=== PATIENT | female | born 1990 | race African-American/Black ===

== ENCOUNTER 2019-06-30 17:55 | Emergency (ER) | payer MEDICAID, OTHER ==
[~2019-06-30] VITALS: Ht 165.1 cm; Wt 73.0 kg
[2019-06-30] MEDS ORDERED: IPRATROPIUM BROMIDE (0.02%) 0.5MG/2.5ML NEB HHN STA (18:09)
[2019-06-30] MEDS ORDERED: METHYLPREDNISOLONE SOD SUCC 125 MG/2 ML VIAL IV STA (18:09)
[2019-06-30] MEDS ORDERED: ALBUTEROL (0.083%) 2.5MG/3ML NEB HHN STA ×2 (18:09→20:58)
[2019-06-30] MEDS ORDERED: MAGNESIUM 2 G PREMIX 50 ML IV ONE (18:15)
[2019-06-30 23:13] VITALS: BP 110/60
== END 2019-06-30 23:14 | disposition home or self-care (01) ==
LOC: ER 17:55
DX: J45.51 Severe persistent asthma with (acute) exacerbation (principal); R03.0 Elevated blood-pressure reading, without diagnosis of hypertension; M79.671 Pain in right foot
CPT/HCPCS: 73630; 94640; 96365; 96366; 96375; 99284; J2930; J3475; J7611; Z7610